=== PATIENT | female | born 1945 | race Caucasian/White ===

== ENCOUNTER 2019-04-21 09:44 | Day surgery (SDC) | payer MEDICARE ==
[~2019-04-21] VITALS: Ht 170.2 cm; Wt 90.7 kg
[2019-04-21] MEDS ORDERED: SODIUM CHLORIDE 0.9% 1,000 ML IV SCH (11:46)
[2019-04-21] MEDS ORDERED: VENL225T PO (12:01)
[2019-04-21] MEDS ORDERED: BUPR300T4 PO (12:01)
[2019-04-21] MEDS ORDERED: ROSU10TA26 PO (12:01)
[2019-04-21] MEDS ORDERED: METO-282 PO (12:01)
[2019-04-21] MEDS ORDERED: LISI-170 PO (12:01)
[2019-04-21] MEDS ORDERED: ALPR0.5T PO (12:01)
[2019-04-21 12:05] VITALS: BP 143/77
[2019-04-21 12:33] LABS: BASOPHILS # (AUTO) 0.03 x10^3/uL (0-0.1); BASOPHILS % (AUTO) 1 % (0-1); EOSINOPHILS # (AUTO) 0.14 x10^3/uL (0-0.4); EOSINOPHILS % (AUTO) 3 % (1-7); LYMPHOCYTES # (AUTO) 0.73 x10^3/uL (1-3.4); LYMPHOCYTES % (AUTO) 16 % (22-44); MD NO; MEAN CORPUSCULAR HEMOGLOBIN 32.9 pg (27.0-34.8); MEAN CORPUSCULAR HGB CONC 33.3 g/dL (32.4-35.8); MEAN CORPUSCULAR VOLUME 98.7 fL (80-100); MEAN PLATELET VOLUME 8.2 fL (7.4-10.4); MONOCYTES # (AUTO) 0.49 x10^3/uL (0.2-0.8); MONOCYTES % (AUTO) 11 % (2-9); NEUTROPHILS % (AUTO) 69 % (42-75); PLATELET COUNT 237 x10^3/uL (130-400); RED BLOOD COUNT 4.31 x10^6/uL (3.82-5.3); RED CELL DISTRIBUTION WIDTH 13.4 % (9.6-15.2)
[2019-04-21] MEDS ORDERED: TICAGRELOR 90 MG TABLET ONE (12:36)
[2019-04-21] MEDS ORDERED: MIDAZOLAM 1 MG/ML, 5ML ONE (12:36)
[2019-04-21] MEDS ORDERED: BIVALIRUDIN 250 MG ONE (12:36)
[2019-04-21] MEDS ORDERED: LIDOCAINE-MPF 1%, 5ML ONE (12:36)
[2019-04-21] MEDS ORDERED: FENTANYL PF 100 MCG/2ML ONE (12:36)
[2019-04-21] MEDS ORDERED: VERAPAMIL 2.5 MG/ML, 2ML ONE (12:36)
[2019-04-21] MEDS ORDERED: HEPARIN 1,000 UNITS/ML, 10ML ONE (12:37)
[2019-04-21 12:43] LABS: ANION GAP 6 mmol/L (5-15); CALCIUM 8.8 mg/dL (8.5-10.1); CHLORIDE 109 mmol/L (98-107); CREATININE 1.12 mg/dL (0.55-1.02)
== END 2019-04-21 14:25 | disposition home or self-care (01) ==
LOC: CACL 09:44
PROVIDERS: ATTEND Internal Medicine Cardiovascular Disease
DX: I35.0 Nonrheumatic aortic (valve) stenosis (principal); I10 Essential (primary) hypertension; E78.5 Hyperlipidemia, unspecified; Z72.89 Other problems related to lifestyle; Z79.899 Other long term (current) drug therapy; Z82.49 Family history of ischemic heart disease and other diseases of the circulatory system
CPT/HCPCS: 36415; 80048; 85025; 93454; 99156; C1769; C1894; J1644; J2250; J3010; Q9967; J0583

== ENCOUNTER → 2019-05-02 | Outpatient (CLI) | payer MEDICARE ==
[~2019-05-02] MED LIST: ALPR0.5T PO; BUPR300T4 PO; LISI-170 PO; METO-282 PO; ROSU10TA26 PO; VENL225T PO
== END | disposition home or self-care (01) ==
LOC: CVU 11:54
PROVIDERS: ATTEND Internal Medicine Cardiovascular Disease
DX: I35.0 Nonrheumatic aortic (valve) stenosis (principal); I70.0 Atherosclerosis of aorta; R91.8 Other nonspecific abnormal finding of lung field; I65.23 Occlusion and stenosis of bilateral carotid arteries; N28.1 Cyst of kidney, acquired
CPT/HCPCS: 71250; 74176; 93880; 94010; 94726; 94729

== ENCOUNTER 2019-05-10 08:36 | Inpatient (IN) | payer MEDICARE ==
[~2019-05-10] VITALS: Ht 170.2 cm; Wt 90.9 kg
[~2019-05-10 08:36] MED LIST changes: +CHLORHEXIDINE 15 ML UDC ONE
[2019-05-10] MEDS ORDERED: SODIUM CHLORIDE 0.9% 1,000 ML IV ONE (09:21)
[2019-05-10 09:27] VITALS: BP 131/75
[2019-05-10] MEDS ORDERED: LEVO75TA PO (09:27)
[2019-05-10] MEDS ORDERED: ONDANSETRON 2MG/ML, 2ML IVPush PRN ×2 (09:30→14:00)
[2019-05-10] MEDS ORDERED: CHLORHEXIDINE 15 ML UDC MM PRN (09:30)
[2019-05-10 10:15] LABS: INTERNATIONAL NORMALIZED RATIO 0.97 (0.93-1.1); PROTHROMBIN TIME 10.2 Seconds (9.6-11.5)
[2019-05-10 10:16] LABS: ALANINE AMINOTRANSFERASE 44 U/L (12-78); ALBUMIN 3.8 g/dL (3.4-5.0); ANION GAP 7 mmol/L (5-15); CALCIUM 9.3 mg/dL (8.5-10.1); CHLORIDE 109 mmol/L (98-107); CREATININE 1.11 mg/dL (0.55-1.02)
[2019-05-10 10:17] LABS: BASOPHILS # (AUTO) 0.02 x10^3/uL (0-0.1); BASOPHILS % (AUTO) 0 % (0-1); EOSINOPHILS # (AUTO) 0.11 x10^3/uL (0-0.4); EOSINOPHILS % (AUTO) 2 % (1-7); LYMPHOCYTES # (AUTO) 0.59 x10^3/uL (1-3.4); LYMPHOCYTES % (AUTO) 12 % (22-44); MD NO; MEAN CORPUSCULAR HEMOGLOBIN 32.2 pg (27.0-34.8); MEAN CORPUSCULAR HGB CONC 33.6 g/dL (32.4-35.8); MEAN PLATELET VOLUME 8.2 fL (7.4-10.4); MONOCYTES # (AUTO) 0.47 x10^3/uL (0.2-0.8); MONOCYTES % (AUTO) 9 % (2-9); NEUTROPHILS # (AUTO) 3.94 x10^3/uL (1.8-6.8); NEUTROPHILS % (AUTO) 77 % (42-75); PLATELET COUNT 238 x10^3/uL (130-400); RED BLOOD COUNT 4.45 x10^6/uL (3.82-5.3); RED CELL DISTRIBUTION WIDTH 13.1 % (9.6-15.2)
[2019-05-10 10:21] LABS: ALKALINE PHOSPHATASE 72 U/L (45-117); BILIRUBIN,TOTAL 0.4 mg/dL (0.2-1.0); TOTAL PROTEIN 8.1 g/dL (6.4-8.2)
[2019-05-10] MEDS ORDERED: CEFAZOLIN 1,000 MG ONE (12:26)
[2019-05-10] MEDS ORDERED: DEXAMETHASONE 4 MG/ML, 1ML ONE (12:26)
[2019-05-10] MEDS ORDERED: PHENYLEPHRINE 10 MG/ML ONE (12:26)
[2019-05-10] MEDS ORDERED: FENTANYL PF 250 MCG/5ML ONE (12:28)
[2019-05-10] MEDS ORDERED: ROCURONIUM 10MG/ML,5ML ONE (13:24)
[2019-05-10] MEDS ORDERED: SUGAMMADEX 200 MG/2 ML IVPush ONE (13:24)
[2019-05-10] MEDS ORDERED: PROPOFOL 10 MG/ML, 20ML ONE (13:24)
[2019-05-10] MEDS ORDERED: SUCCINYLCHOLINE 20 MG/ML, 10ML ONE (13:24)
[2019-05-10] MEDS ORDERED: ONDANSETRON 2MG/ML, 2ML ONE ×2 (13:24)
[2019-05-10] MEDS ORDERED: HEPARIN 1,000 UNITS/ML, 10ML ONE (13:35)
[2019-05-10] MEDS ORDERED: PROTAMINE SULFATE 10 MG/ML, 25ML ONE (13:35)
[2019-05-10] MEDS ORDERED: ACETAMINOPHEN 325 MG TABLET PO PRN (14:00)
[2019-05-10] MEDS ORDERED: CLOPIDOGREL 300 MG TABLET PO ONE (14:00)
[2019-05-10] MEDS ORDERED: LABETALOL 20 MG/4 ML IVPush PRN (14:00)
[2019-05-10] MEDS ORDERED: HYDROcodone/APAP 5/325 TABLET PO PRN (14:00)
[2019-05-10] MEDS ORDERED: hydrALAzine 20 MG/ML, 1ML IVPush PRN (14:00)
[2019-05-10 15:30] VITALS: BP 119/72
[2019-05-10 17:48] VITALS: BP 119/54
[2019-05-10 19:48] VITALS: BP 124/77
[2019-05-10] MEDS ORDERED: ATORVASTATIN 40 MG TABLET ONE (20:25)
[2019-05-11 01:24] VITALS: BP 96/55
[2019-05-11 05:26] LABS: ANION GAP 7 mmol/L (5-15); BASOPHILS % (AUTO) 0 % (0-1); CALCIUM 8.6 mg/dL (8.5-10.1); CHLORIDE 111 mmol/L (98-107); EOSINOPHILS % (AUTO) 0 % (1-7); LYMPHOCYTES # (AUTO) 0.47 x10^3/uL (1-3.4); LYMPHOCYTES % (AUTO) 5 % (22-44); MD NO; MEAN CORPUSCULAR HEMOGLOBIN 32.1 pg (27.0-34.8); MEAN CORPUSCULAR HGB CONC 33.6 g/dL (32.4-35.8); MEAN CORPUSCULAR VOLUME 95.6 fL (80-100); MEAN PLATELET VOLUME 8.1 fL (7.4-10.4); MONOCYTES # (AUTO) 0.46 x10^3/uL (0.2-0.8); MONOCYTES % (AUTO) 5 % (2-9); NEUTROPHILS # (AUTO) 9.04 x10^3/uL (1.8-6.8); NEUTROPHILS % (AUTO) 91 % (42-75); PLATELET COUNT 192 x10^3/uL (130-400); RED BLOOD COUNT 4.02 x10^6/uL (3.82-5.3); RED CELL DISTRIBUTION WIDTH 13.2 % (9.6-15.2)
[2019-05-11] MEDS ORDERED: LEVOTHYROXINE 75 MCG TABLET PO SCH (06:00)
[2019-05-11] MEDS ORDERED: BUPROPION SR 150 MG TABLET PO SCH (09:00)
[2019-05-11] MEDS ORDERED: METOPROLOL SUCCINATE 25 MG TAB.ER.24H PO SCH (09:00)
[2019-05-11] MEDS ORDERED: LISINOPRIL 20 MG TABLET PO SCH (09:00)
[2019-05-11] MEDS ORDERED: CLOPIDOGREL 75 MG TABLET PO SCH (09:00)
[2019-05-11] MEDS ORDERED: ASPIRIN 81 MG TABLET EC PO SCH (09:00)
[2019-05-11] MEDS ORDERED: ATORVASTATIN 40 MG TABLET PO SCH (09:00)
[2019-05-11] MEDS ORDERED: VENLAFAXINE 75 MG CAP ER PO SCH (09:00)
[2019-05-11] MEDS ORDERED: ASPI81TA45 PO (09:19)
[2019-05-11] MEDS ORDERED: CLOP75TA PO (09:19)
[2019-05-11 09:44] VITALS: BP 118/68
== END 2019-05-11 12:10 | disposition home or self-care (01) | DRG 266 ==
LOC: ORIP 08:36 → CCU 13:44 → 5SO 15:21 → DCLOUNGE 05-11 12:02
PROVIDERS: ADMIT Internal Medicine Cardiovascular Disease; ATTEND Internal Medicine Cardiovascular Disease
PROC: 03HY32Z Insertion of Monitoring Device into Upper Artery, Percutaneous Approach (ICD-10-PCS; 2019-05-10)
PROC: B24BZZ4 Ultrasonography of Heart with Aorta, Transesophageal (ICD-10-PCS; 2019-05-10)
PROC: B310YZZ Fluoroscopy of Thoracic Aorta using Other Contrast (ICD-10-PCS; 2019-05-10)
PROC: 02RF38Z Replacement of Aortic Valve with Zooplastic Tissue, Percutaneous Approach (ICD-10-PCS; principal; 2019-05-10 13:30)
DX: I35.0 Nonrheumatic aortic (valve) stenosis (principal); Z00.6 Encounter for examination for normal comparison and control in clinical research program; I50.33 Acute on chronic diastolic (congestive) heart failure; I13.0 Hypertensive heart and chronic kidney disease with heart failure and stage 1 through stage 4 chronic kidney disease, or unspecified chronic kidney disease; E03.9 Hypothyroidism, unspecified; E78.5 Hyperlipidemia, unspecified; N18.9 Chronic kidney disease, unspecified
CPT/HCPCS: 33361; 36415; 80048; 80053; 83880; 85025; 85347; 85610; 85730; 86850; 86900; 86923; 87081; 93005; 93306; 93312; 93321; 93325; 93355; C1760; C1769; C1894; G0378; J0690; J1100; J1644; J2405; J2704; J2720; J3010; J0330; J2370; J7030; Q9967

== ENCOUNTER 2019-06-14 10:31 | Outpatient (CLI) | payer MEDICARE ==
[~2019-06-14 10:31] MED LIST changes: +ASPI81TA45 PO; -CHLORHEXIDINE 15 ML UDC ONE; +CLOP75TA PO; +LEVO75TA PO
== END 2019-06-14 23:59 | disposition home or self-care (01) ==
LOC: CVU 10:31
PROVIDERS: ATTEND Internal Medicine Cardiovascular Disease
DX: T82.330A Leakage of aortic (bifurcation) graft (replacement), initial encounter (principal); I11.9 Hypertensive heart disease without heart failure; I35.0 Nonrheumatic aortic (valve) stenosis; E78.5 Hyperlipidemia, unspecified; I65.23 Occlusion and stenosis of bilateral carotid arteries; Y83.8 Other surgical procedures as the cause of abnormal reaction of the patient, or of later complication, without mention of misadventure at the time of the procedure; Y92.89 Other specified places as the place of occurrence of the external cause; Z95.2 Presence of prosthetic heart valve
CPT/HCPCS: 93306; 93356

== ENCOUNTER → 2020-06-13 | Outpatient (CLI) | payer MEDICARE ==
[~2020-06-13] MED LIST changes: -BUPR300T4 PO; +BUPR300T94 PO
== END | disposition home or self-care (01) ==
LOC: CVU 09:50
PROVIDERS: ATTEND Internal Medicine Cardiovascular Disease
DX: I05.1 Rheumatic mitral insufficiency (principal); I11.9 Hypertensive heart disease without heart failure; R06.02 Shortness of breath; I65.29 Occlusion and stenosis of unspecified carotid artery
CPT/HCPCS: 93306